=== PATIENT | male | born 1950 | race Caucasian/White ===

== ENCOUNTER → 2016-06-05 | Outpatient (CLI) | payer BC | END | disposition home or self-care (01) | LOC: GMAB 10:41 | PROVIDERS: ATTEND Family Medicine | DX: Z00.00 Encounter for general adult medical examination without abnormal findings (principal) ==

== ENCOUNTER → 2017-06-11 | Outpatient (CLI) | payer BC, MEDICARE | LOC: GMAB 11:52 | PROVIDERS: ATTEND Family Medicine | DX: R94.5 Abnormal results of liver function studies (principal); Z12.5 Encounter for screening for malignant neoplasm of prostate; R53.83 Other fatigue; I10 Essential (primary) hypertension; M10.9 Gout, unspecified | CPT/HCPCS: 80074; 84403; 84443; 84550; G0103 ==

== ENCOUNTER → 2018-09-01 | Outpatient (CLI) | payer MEDICARE | LOC: GMAE 10:15 | PROVIDERS: ATTEND Family Medicine | DX: Z12.5 Encounter for screening for malignant neoplasm of prostate (principal); I10 Essential (primary) hypertension; E78.2 Mixed hyperlipidemia | CPT/HCPCS: 84443; G0103 ==

== ENCOUNTER → 2019-02-24 | Outpatient (CLI) | payer MEDICARE ==
--- NOTE | 2019-02-25 11:40 | MRI ---
EXAM DESCRIPTION: Lumbar Spine w/o Contrast : Magnetic Resonance Imaging. CLINICAL HISTORY: LOW BACK PAIN COMPARISON: Lumbar radiographs October 2017. TECHNIQUE: Multiplanar, multiple standard sequences, non contrast MRI, lumbar spine. FINDINGS: L5-S1: The disc is well visualized on axial T2 series 501, image 3. Disc desiccation with minimal posterior midline bulging. Degenerative hypertrophy of the posterior elements: Facet joints and posterior flavum ligaments, more left than right. AP canal diameter 13 mm. Moderate left foraminal narrowing and moderate to severe right foraminal narrowing L4-L5: Marked disc space loss and disc desiccation. Moderate endplate reactive changes with small Schmorl's nodes. Anterior disc bulge and endplate ridging. Posterior broad-based disc bulge more to the right of midline. Bilateral degenerative hypertrophy of the posterior elements. AP canal diameter 1.2 cm. Moderate narrowing of the left foramen, and borderline right foraminal stenosis. L3-L4: Disc desiccation and minimal to moderate disc space loss. Anterior disc bulge with endplate ridging. Posterior minimal disc bulge. Degenerative hypertrophy of the posterior ligaments bilaterally. AP canal diameter 13 mm. Mild to moderate narrowing of the left foramen and moderate narrowing of the right foramen. L2-L3: Disc desiccation and minimal anterior bulging. Degenerative hypertrophy of the posterior elements impressing on the lateral thecal sac. Mild canal narrowing. Mild narrowing of the left foramen and moderate narrowing of the right foramen. L1-L2: Moderate endplate reactive changes in the midline and right of midline and moderate to severe disc space loss with anterior disc bulging and endplate ridging and posterior disc bulging. This may be centimeters acute. Endplate changes minimal to the left of midline. Hypertrophic degeneration of the posterior elements more on the right than left. Moderate to severe narrowing of the bilateral foramina. T12-L1: Disc desiccation with disc space maintained. No bulging. Minimal degenerative hypertrophy of the posterior elements more on the right. Canal and foramina are patent. Conus terminates at this level. T11-T12: Disc desiccation with anterior moderate spondylosis. No significant canal or foraminal narrowing at this level. No scoliosis. Paravertebral soft tissues left renal hydronephrosis versus parapelvic cyst.. Distal cord normal signal and caliber. Otherwise normal marrow signal in the remaining vertebral bodies and the posterior elements. Vertebral bodies are not compressed at any level. IMPRESSION: 1. Multiple levels of endplate spondylosis, disc desiccation and bulging, hypertrophic degeneration of the posterior elements, and canal and neural foraminal narrowing. 2. Subacute spondylosis at L1-L2 with canal narrowing and bilateral moderate to severe neural foraminal narrowing. 3. Spondylosis at L4-L5 with disc bulge and moderate central canal stenosis and borderline right foraminal stenosis. Correlate for right L4 radiculopathy. 4. For details of other disc space levels, please see above. Electronically signed by: Aldo Herndon MD 02/25/2019 11:08 AM [facility]
== END ==
LOC: MRI 07:00
PROVIDERS: ATTEND Family Medicine
DX: M47.896 Other spondylosis, lumbar region (principal); M51.36 Other intervertebral disc degeneration, lumbar region; M48.061 Spinal stenosis, lumbar region without neurogenic claudication

== ENCOUNTER 2019-07-31 20:27 | Emergency (ER) | payer MEDICARE ==
[2019-07-31] MEDS ORDERED: TETANUS,DIPHTHERIA,PERTUSSIS 1 EA SYG IM ONE (20:49)
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
[2019-07-31 21:49] VITALS: BP 124/81; TEMP 97.8; O2SAT 97
== END 2019-07-31 21:30 | disposition home or self-care (01) ==
LOC: ER 20:27
DX: S01.112A Laceration without foreign body of left eyelid and periocular area, initial encounter (principal); V92.03XA Drowning and submersion due to fall off other powered watercraft, initial encounter; W26.8XXA Contact with other sharp object(s), not elsewhere classified, initial encounter; Y92.9 Unspecified place or not applicable

== ENCOUNTER → 2020-01-11 | Outpatient (CLI) | payer MEDICARE | LOC: GMAE 14:28 | PROVIDERS: ATTEND Family Medicine | DX: M10.9 Gout, unspecified (principal); I10 Essential (primary) hypertension; Z79.891 Long term (current) use of opiate analgesic; R73.01 Impaired fasting glucose; E78.2 Mixed hyperlipidemia ==

== ENCOUNTER → 2020-01-20 | Outpatient (CLI) | payer MEDICARE | LOC: GMAE 14:28 | PROVIDERS: ATTEND Family Medicine | DX: E55.9 Vitamin D deficiency, unspecified (principal) ==